=== PATIENT | female | born 1940 | race African-American/Black ===

== ENCOUNTER 2019-02-05 13:15 | Emergency (ER) | payer OTHER, MEDICAID ==
[~2019-02-05] VITALS: Ht 165.1 cm; Wt 90.0 kg
[2019-02-05 14:57] LABS: CHLORIDE 111 mEq/L (98-107)
[2019-02-05 14:58] LABS: BASOPHILS % 0.4 % (0.0-2.0); EOSINOPHILS % 1.1 % (0.0-5.0); HEMATOCRIT. 37.6 % (36.0-48.0); HEMOGLOBIN. 12.3 g/dL (12.0-16.0); LYMPHOCYTES % 24.8 % (20.0-50.0); MEAN CORPUSCULAR HEMOGLOBIN 28.6 pg (28.0-32.0); MEAN CORPUSCULAR VOLUME 87.4 fL (81.0-99.0); MEAN PLATELET VOLUME 10.4 fl (7.4-10.4); MONOCYTES % 8.6 % (2.0-8.0); NEUTROPHILS % 65.1 % (40.0-76.0); PLATELET 211 x1000/uL (130-400); RED CELL DISTRIBUTION WIDTH 15.1 % (11.6-14.6)
[2019-02-05 16:55] VITALS: BP 128/72
== END 2019-02-05 16:58 | disposition home or self-care (01) ==
LOC: ER 13:15
DX: I49.3 Ventricular premature depolarization (principal); F41.9 Anxiety disorder, unspecified; I10 Essential (primary) hypertension; W01.0XXA Fall on same level from slipping, tripping and stumbling without subsequent striking against object, initial encounter; Y93.41 Activity, dancing; Y92.89 Other specified places as the place of occurrence of the external cause; Y99.8 Other external cause status
CPT/HCPCS: 36415; 93005; 99284